=== PATIENT | female | born 1985 | race Caucasian/White ===

== ENCOUNTER → 2022-08-12 07:53 | Outpatient (CLI) | payer OTHER, SELFPAY ==
--- NOTE | ~2022-08-12 | MMUS_ITS ---
EXAMINATION: MM diagnostic stephen BI w simon, US breast BI limited HISTORY: Bilateral nipple discharge TECHNIQUE: Craniocaudal, mediolateral, and mediolateral oblique 3-D tomosynthesis images of the breas ts were performed and synthetic 2-D images were generated. CAD analysis was submitted and interpreted . High resolution limited bilateral breast ultrasound was performed. COMPARISON: None, baseline BREAST PARENCHYMAL COMPOSITION: The breasts are extremely dense, which lowers the sensitivity of mamm ography. FINDINGS: MAMMOGRAPHIC FINDINGS: No suspicious mass, calcification, or architectural distortion are identified to suggest malignancy. No mammographic correlate is identified for the patient's reported bilateral nipple discharge. ULTRASOUND: There is a 7 mm round, circumscribed, hypoechoic mass in the subareolar aspect of the right breast wi th posterior acoustic enhancement, probable complicated cyst. No suspicious cystic or solid mass is i dentified in the subareolar aspect of the left breast. IMPRESSION: 1. No specific mammographic or sonographic correlate is identified for the patient's reported nipple discharge. Further evaluation at this time should be based on clinical assessment. Continued follow-u p physical examination is recommended. Probable complicated cyst in the subareolar right breast. 2. Recommend 6 month follow-up limited right breast ultrasound. BI-RADS category 3, probably benign findings. Reviewed, dictated and finalized at location A. IMPRESSION: 1. No specific mammographic or sonographic correlate is identified for the bonnie ent's reported nipple discharge. Further evaluation at this time should be base d on clinical assessment. Continued follow-up physical examination is recommend ed. Probable complicated cyst in the subareolar right breast. 2. Recommend 6 month follow-up limited right breast ultrasound. BI-RADS category 3, probably benign findings.
== END ==
PROVIDERS: PCP Family Medicine; Visit Provider Advanced Practice Midwife
DX: N64.52 Nipple discharge (principal); R92.8 Other abnormal and inconclusive findings on diagnostic imaging of breast
CPT/HCPCS: 76642; 77062; 77066; G0279

== ENCOUNTER 2022-09-15 11:39 | Outpatient (CLI) | payer OTHER, SELFPAY ==
--- NOTE | ~2022-09-15 | MM_ITS ---
MM ductogram single duct RT DATE: 09/15/2022 12:51 INDICATION: Nipple discharge TECHNIQUE: The purpose of the procedure and technique were discussed with the patient. The patient in dicated understanding and gave consent. With mild compression there was quick nipple discharge from an orifice at the nipple. The orifice was cannulated with the stylette. Approximately 1 mm radiopaque contrast material was injected and medio lateral and craniocaudal exposures were made. After completion of the imaging, an attempt was made by manual compression to elicit additional disch arge from any other ducts, without success. The patient tolerated procedure very well, without any complaint or apparent complication. COMPARISON: 08/2022 bilateral diagnostic mammography and Limited bilateral breast ultrasound FINDINGS: There is contrast opacification of the discharging duct and numerous branches extending int o the posterior reaches of the lower inner quadrant of the left breast. No filling defect is identifi ed. IMPRESSION: Discharging duct drains the lower inner quadrant of the right breast. No filling defect i s identified within the visualized ductal system. Reviewed, dictated and finalized at [facility]. 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 No filling defect is identified within the visualized ductal system.
== END 2022-09-15 11:40 | disposition home or self-care (01) ==
PROVIDERS: PCP Family Medicine; Visit Provider Surgery
DX: N64.52 Nipple discharge (principal)
CPT/HCPCS: 19030; 77053; Q9966

== ENCOUNTER → 2023-02-16 13:17 | Outpatient (CLI) | payer OTHER, SELFPAY ==
--- NOTE | ~2023-02-16 | US_ITS ---
US breast RT limited DATE: 02/16/2023 13:40 INDICATION: Six-month follow-up of abnormal ultrasound TECHNIQUE: Targeted right breast ultrasound examination and subareolar area COMPARISON: 08/2022 bilateral Limited breast ultrasound examination FINDINGS: There is a mildly irregular hypoechoic approximately 5.5 x 7.2 x 5.4 mm lesion in the subar eolar area. No internal vascularity is noted. There is no posterior shadowing. Portions of the wall a re not completely circumscribed and some portions irregular. Ultrasound-guided biopsy is recommended. IMPRESSION: BI-RADS Category 4: Suspicious abnormality; biopsy should be considered Recommendation: Ultrasound-guided biopsy of right breast 7.[address] Rendon telephoned the report and ultrasound-guided biopsy recommendation on February 16, 2023 at 1415 hours to [place] including indicated that she would have Dr. Acevedo returned my phone call. Reviewed, dictated and finalized at [facility]. Reviewed, dictated and finalized at location A. IMPRESSION: BI-RADS Category 4: Suspicious abnormality; biopsy should be consid ered Recommendation: Ultrasound-guided biopsy of right breast 7.2 mm subareolar lesi on skin Dr. Rendon telephoned the report and ultrasound-guided biopsy recommendation on A 2022 at 1415 hours to [place] including indicated that she would have Dr. Acevedo returned my phone call.
== END ==
PROVIDERS: PCP Family Medicine; Visit Provider Surgery
DX: R92.8 Other abnormal and inconclusive findings on diagnostic imaging of breast (principal)
CPT/HCPCS: 76642

== ENCOUNTER 2023-02-25 12:35 | Outpatient (CLI) | payer OTHER, SELFPAY ==
--- NOTE | ~2023-02-25 | MMUS_ITS ---
EXAMINATION: US breast biopsy RT w image, MM post biopsy invasive RT DATE: 02/25/2023 13:57 (accession [id number]), 02/25/2023 13:55 (accession [id number]) INDICATION: Subareolar right breast mass. Ultrasound-guided core biopsy is requested to evaluate for malignancy. TECHNIQUE AND FINDINGS: The risks and potential benefits of the procedure were discussed with the patient including bleeding and infection. A time out was performed. The skin of the right breast was prepared and draped in usua l sterile fashion. 1% lidocaine was used for superficial anesthesia. 1% lidocaine with epinephrine wa s used for deep anesthesia. A vacuum-assisted biopsy needle was advanced through to the outer edge of the region of interest from an inferior approach utilizing sonographic guidance. A total of two tissue core samples were obtaine d through the lesion. The lesion was no longer visible after the second tissue sample was obtained. A tissue marker clip was then placed at the biopsy site. Hemostasis was achieved. A sterile bandage wa s applied. The patient tolerated procedure well and there was no evidence of immediate complication. The patient was given verbal instructions to return to the Emergency Department in the event of severe breast pa in or rapid breast enlargement. A two view right breast mammogram was obtained to document tissue mar ker clip placement. IMPRESSION: 1. Successful ultrasound-guided vacuum-assisted biopsy of right breast mass with tissue marker placem ent. Reviewed, dictated and finalized at location A. IMPRESSION: 1. Successful ultrasound-guided vacuum-assisted biopsy of right breast mass wit h tissue marker placement.
== END 2023-02-25 12:36 | disposition home or self-care (01) ==
PROVIDERS: PCP Family Medicine; Visit Provider Surgery
DX: N60.31 Fibrosclerosis of right breast (principal); R92.8 Other abnormal and inconclusive findings on diagnostic imaging of breast
CPT/HCPCS: 19083; 88305; A4648

== ENCOUNTER → 2023-10-15 10:47 | Outpatient (CLI) | payer OTHER, SELFPAY ==
--- NOTE | ~2023-10-15 | US_ITS ---
Pelvic ultrasound. Clinical History: Abnormal uterine bleeding Technique: Realtime transabdominal scanning of the pelvis was performed. Color flow Doppler and Doppl er spectral analysis were performed. Findings: The uterus is anteverted. The endometrial stripe has a thickness of 12 mm. No focal mass i s identified. The right ovary measures 3.9 x 2.6 x 4.0 cm. No significant right ovarian or adnexal mass is seen. The left ovary measures 2.6 x 1.3 x 2.8 cm. No significant left ovarian or adnexal mass is seen. There is no evidence of free fluid in the cul de sac. Impression: Unremarkable pelvic ultrasound. Reviewed, dictated and finalized at location M. ER IN Impression: Unremarkable pelvic ultrasound.
== END ==
PROVIDERS: PCP Advanced Practice Midwife; Visit Provider Advanced Practice Midwife
DX: N93.8 Other specified abnormal uterine and vaginal bleeding (principal)
CPT/HCPCS: 76856

== ENCOUNTER 2025-10-03 08:46 | Outpatient (CLI) | payer OTHER, SELFPAY ==
--- NOTE | ~2025-10-03 | MMUS_ITS ---
EXAMINATION: MM diagnostic stephen BI w simon, US breast RT limited HISTORY: Palpable abnormality on the right. TECHNIQUE: Craniocaudal and mediolateral oblique 3-D tomosynthesis images were obtained and synthetic 2-D images were generated. CAD analysis was submitted and interpreted. Grayscale sonography over the area(s) of interest with color Doppler if there is a finding. COMPARISON: Studies dating back to 2022. BREAST PARENCHYMAL COMPOSITION: The breast tissue is extremely dense, which lowers the sensitivity of mammography. MAMMOGRAM FINDINGS: There is a biopsy marker on the right. No suspicious masses are seen. There are no suspicious calcifications. No unexplained architectural distortion is seen. There are no skin or nipple abnormalities identified. There is no adenopathy seen on the images submitted. ULTRASOUND FINDINGS: In the palpable area at 8:00 in the right, there is a cyst with a single thin septation and a maximum dimension of 1.5 cm. Smaller cyst is seen very close to it. No solid masses are seen. IMPRESSION: There are cysts in the palpable area as described. No mammographic evidence to suggest malignancy is seen. The patient may return to screening mammography as per ACR guidelines. BI-RADS Code: 2 - Benign. Reviewed, dictated and finalized at location B. 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 No mammographic evidence to suggest malignancy is seen. The patient may return to screening mammography as per ACR guidelines. BI-RADS Code: 2 - Benign.
== END 2025-10-03 08:47 | disposition home or self-care (01) ==
LOC: MICIMG 08:47
PROVIDERS: PCP Obstetrics & Gynecology Gynecology; Visit Provider Obstetrics & Gynecology Gynecology
DX: R92.8 Other abnormal and inconclusive findings on diagnostic imaging of breast (principal)
CPT/HCPCS: 76642; 77062; 77066; G0279